=== PATIENT | female | born 1960 | race Caucasian/White ===

== ENCOUNTER 2017-09-27 09:31 | Emergency (ER) | payer OTHER ==
[~2017-09-27] VITALS: Ht 165.1 cm; Wt 81.7 kg
[2017-09-27] MEDS ORDERED: BUSPIRONE HCL10 MG (09:44)
[2017-09-27] MEDS ORDERED: PAXIL10 MG (09:44)
[2017-09-27] MEDS ORDERED: FLEXERIL PO (10:12)
[2017-09-27] MEDS ORDERED: NORCO 5-325 TA1 EACH PO (10:12)
[2017-09-27 11:31] VITALS: BP 136/90
[2017-09-27] MEDS ORDERED: IBUPROFEN 800800 MG PO (11:36)
== END 2017-09-27 11:40 | disposition home or self-care (01) ==
LOC: M.ERS 09:31
DX: S16.1XXA Strain of muscle, fascia and tendon at neck level, initial encounter (principal); F41.9 Anxiety disorder, unspecified; F32.9 Major depressive disorder, single episode, unspecified; Z88.5 Allergy status to narcotic agent; V87.7XXA Person injured in collision between other specified motor vehicles (traffic), initial encounter; Y93.89 Activity, other specified; Y92.89 Other specified places as the place of occurrence of the external cause; Y99.8 Other external cause status